=== PATIENT | male | born 1990 | race African-American/Black ===

== ENCOUNTER 2016-12-14 21:13 | Emergency (ER) | payer OTHER ==
[~2016-12-14] VITALS: Ht 172.7 cm; Wt 81.6 kg
[~2016-12-14 21:13] MED LIST: CARAFATE1 G1 PO; CIPROFLOXACIN500 MG PO; DICYCLOMINE10 MG PO; MOTRIN800 MG PO; NKHM PO; PERCOCET 325 MG1 TA2 PO; ULTRAM50 MG PO; VENLAFAXINE37.5 MG PO; VICODIN 5/500 505 MG PO
[2016-12-14 21:55] LABS: BILIRUBIN NEGATIVE (NEGATIVE); BLOOD NEGATIVE (NEGATIVE); CLARITY CLEAR (CLEAR); COLOR YELLOW (YELLOW); GLUCOSE NEGATIVE (NEGATIVE); KETONE NEGATIVE (NEGATIVE); LEUKO ESTERASE NEGATIVE (NEGATIVE); NITRITE NEGATIVE (NEGATIVE); PROTEIN NEGATIVE (NEGATIVE); UROBILINOGEN 0.2 E.U./dl (0.2-1.0)
[2016-12-14 22:01] LABS: RBC 0-2 rbc/hpf (0-2); URINE REFLEX COMMENT NO (NO); WBC 0-2 wbc/hpf (0-5)
[2016-12-15] MEDS ORDERED: DOXYCYCLINE100 M3 PO (01:34)
[2016-12-15] MEDS ORDERED: IBU800 MG PO (01:34)
[2016-12-15] MEDS ORDERED: NORCO 5-325 TA1 EACH PO (01:34)
== END 2016-12-15 01:51 | disposition home or self-care (01) ==
LOC: ED 21:13
PROVIDERS: Emergency Medicine
DX: N50.812 Left testicular pain (principal); F17.200 Nicotine dependence, unspecified, uncomplicated; Z98.890 Other specified postprocedural states; Z88.0 Allergy status to penicillin; Z88.8 Allergy status to other drugs, medicaments and biological substances

== ENCOUNTER 2020-01-27 16:53 | Emergency (ER) | payer SELFPAY ==
[~2020-01-27] VITALS: Ht 170.1 cm; Wt 72.6 kg
[~2020-01-27 16:53] MED LIST changes: +DOXYCYCLINE100 M3 PO; +IBU800 MG PO; +NORCO 5-325 TA1 EACH PO
[2020-01-27] MEDS ORDERED: CYCLOBENZAPRINE10 MG PO (18:59)
[2020-01-27] MEDS ORDERED: ANAPROX DS550 MG PO (18:59)
== END 2020-01-27 19:13 | disposition home or self-care (01) ==
LOC: ED 16:53
DX: S30.810A Abrasion of lower back and pelvis, initial encounter (principal); T14.8XXA Other injury of unspecified body region, initial encounter; M54.2 Cervicalgia; M25.512 Pain in left shoulder; M25.552 Pain in left hip; R10.32 Left lower quadrant pain; Z88.8 Allergy status to other drugs, medicaments and biological substances; Z88.0 Allergy status to penicillin; V89.2XXA Person injured in unspecified motor-vehicle accident, traffic, initial encounter; Y93.I9 Activity, other involving external motion; Y92.89 Other specified places as the place of occurrence of the external cause; Y99.8 Other external cause status

== ENCOUNTER 2020-06-02 06:51 | Emergency (ER) | payer OTHER ==
[~2020-06-02] VITALS: Ht 172.7 cm; Wt 72.6 kg
[~2020-06-02 06:51] MED LIST changes: +ANAPROX DS550 MG PO; +CYCLOBENZAPRINE10 MG PO
== END 2020-06-02 08:57 | disposition home or self-care (01) ==
LOC: ED 06:51
DX: S40.011A Contusion of right shoulder, initial encounter (principal); K21.9 Gastro-esophageal reflux disease without esophagitis; Z88.0 Allergy status to penicillin; Z88.8 Allergy status to other drugs, medicaments and biological substances; W20.8XXA Other cause of strike by thrown, projected or falling object, initial encounter; Y93.89 Activity, other specified; Y92.89 Other specified places as the place of occurrence of the external cause; Y99.8 Other external cause status

== ENCOUNTER 2023-06-23 13:08 | Emergency (ER) | payer OTHER ==
[~2023-06-23] VITALS: Ht 167.6 cm; Wt 77.1 kg
== END 2023-06-23 14:05 | disposition home or self-care (01) ==
LOC: ED 13:08
DX: S61.411A Laceration without foreign body of right hand, initial encounter (principal); Z88.0 Allergy status to penicillin; Z88.8 Allergy status to other drugs, medicaments and biological substances; Z79.899 Other long term (current) drug therapy; Z98.890 Other specified postprocedural states; W26.0XXA Contact with knife, initial encounter; Y93.H2 Activity, gardening and landscaping; Y92.89 Other specified places as the place of occurrence of the external cause; Y99.8 Other external cause status